=== PATIENT | male | born 1935 | race Caucasian/White ===

== ENCOUNTER 2018-08-23 10:22 | Emergency (ER) | payer MEDICARE, OTHER ==
[2018-08-23 10:23] VITALS: BMI 21.6
[2018-08-23 10:29] VITALS: BP 154/79; PULSE 91; RESP 18; TEMP 97.9; O2SAT 99
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
== END 2018-08-23 10:45 | disposition home or self-care (01) ==
LOC: H.ER 10:22
DX: Z77.098 Contact with and (suspected) exposure to other hazardous, chiefly nonmedicinal, chemicals (principal)

== ENCOUNTER 2018-12-02 07:58 | Emergency (ER) | payer MEDICARE, OTHER ==
[2018-12-02 07:58] VITALS: BMI 21.6
[2018-12-02 08:12] VITALS: RESP 18
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
[2018-12-02 09:20] LABS: BASO % 0.7 % (0.0-2.0); EOS # 0.1 K/uL (0.0-0.7); EOS % 2.8 % (0.0-4.0); HEMOGLOBIN 12.8 g/dL (12.0-18.0); LYMPH # 0.7 K/uL (1.0-4.3); LYMPH % 34.4 % (20.0-40.0); MEAN CELL VOLUME 87.3 fl (80.0-94.0); MEAN CORPUSCULAR HEMOGLOBIN 28.3 pg (27.0-31.0); MEAN CORPUSCULAR HGB CONC 32.4 g/dL (33.0-37.0); MONO # 0.3 K/uL (0.0-0.8); MONO % 15.4 % (0.0-10.0); NEUT % 46.7 % (50.0-75.0); NRBC % 0.1 % (0.0-0.0); RBC 4.52 Mil/uL (4.40-5.90); RED CELL DISTRIBUTION WIDTH 15.1 % (11.5-14.5); WHITE BLOOD COUNT 2.1 K/uL (4.8-10.8)
[2018-12-02 09:40] LABS: ALB/GLOB RATIO 1.5 (1.0-2.1); ALBUMIN 4.1 g/dL (3.5-5.0); ALT/SGPT 33 U/L (21-72); AST/SGOT 25 U/L (17-59); BLOOD UREA NITROGEN 18 mg/dl (9-20); CALCIUM 8.9 mg/dL (8.4-10.2); GFR NON-AFRICAN AMERICAN > 60; LIPASE 74 U/L (23-300); SQUAMOUS EPITHIAL < 1 /hpf (0-5); URINE BACTERIA RARE (<OCC); URINE BILIRUBIN NEGATIVE (NEGATIVE); URINE BLOOD NEGATIVE (NEGATIVE); URINE CLARITY CLEAR (Clear); URINE COLOR YELLOW (YELLOW); URINE GLUCOSE (UA) NEG (NEGATIVE); URINE LEUKOCYTE ESTERASE NEG Leu/uL (Negative); URINE PROTEIN NEGATIVE (NEGATIVE); URINE UROBILINOGEN 0.2-1.0 mg/dL (0.2-1.0)
[2018-12-02 09:52] LABS: PROTHROMBIN TIME 10.8 Seconds (9.8-13.1)
[2018-12-02 09:55] LABS: PARTIAL THROMBOPLASTIN TIME 30.1 Seconds (25.6-37.1)
[2018-12-02] MEDS ORDERED: Sodium Chloride 0.9% 50 ML IV ONE (09:59)
[2018-12-02] MEDS ORDERED: Iohexol 300 100 ML IJ ONE (09:59)
--- NOTE | 2018-12-02 10:33 | CT ---
Date of service: 12/02/2018 PROCEDURE: CT HEAD WITHOUT CONTRAST. HISTORY: Dizziness COMPARISON: None available. TECHNIQUE: Axial computed tomography images were obtained through the head/brain without intravenous contrast. Radiation dose: Total exam DLP = 799.2 mGy-cm. This CT exam was performed using one or more of the following dose reduction techniques: Automated exposure control, adjustment of the mA and/or kV according to patient size, and/or use of iterative reconstruction technique. FINDINGS: HEMORRHAGE: No intracranial hemorrhage. BRAIN: Diffuse atrophy with prominence of the ventricles and sulci noted. No mass effect or edema. 5 mm nonspecific calcification the region of the right basal ganglia. Scattered periventricular and subcortical white matter hypodensities, which are nonspecific, but often seen with chronic microvascular ischemic disease. Please note that MRI with diffusion imaging is more sensitive in the detection of acute ischemic event. VENTRICLES: No hydrocephalus. CALVARIUM: Unremarkable. PARANASAL SINUSES: Mucosal thickening of the ethmoid air cells. MASTOID AIR CELLS: Unremarkable as visualized. No inflammatory changes. OTHER FINDINGS: None. IMPRESSION: No acute intracranial pathology identified. Incidental findings as above.
--- NOTE | 2018-12-02 10:42 | CT ---
Date of service: 12/02/2018 PROCEDURE: CT Abdomen and Pelvis with contrast HISTORY: Abd pain, nausea COMPARISON: None available. TECHNIQUE: Contrast dose: 95 cc Omnipaque 300 IV Radiation dose: Total exam DLP = 392.85 mGy-cm. This CT exam was performed using one or more of the following dose reduction techniques: Automated exposure control, adjustment of the mA and/or kV according to patient size, and/or use of iterative reconstruction technique. FINDINGS: LOWER THORAX: Bibasilar atelectasis. No visible pleural effusion or pneumothorax. 9 mm nodule at the right lung base. Partially imaged cardiomegaly. Small hiatal hernia/distal esophageal wall thickening. LIVER: Hypoattenuation of the liver compatible with hepatic steatosis. GALLBLADDER AND BILE DUCTS: Unremarkable. PANCREAS: Unremarkable. SPLEEN: Unremarkable. ADRENALS: Unremarkable. KIDNEYS AND URETERS: The kidneys enhance symmetrically. No hydronephrosis or obstructing calculus identified. Bilateral renal cysts. VASCULATURE: No aortic aneurysm. Scattered atherosclerotic calcifications present. BOWEL: Stomach is nondistended. Lack of oral contrast limits evaluation for bowel pathology. Bowel loops appear within normal limits of caliber without evidence of obstruction. Mild wall thickening of the left colon likely exaggerated by under distension; correlate clinically for possibility of colitis. APPENDIX: The appendix appears within normal limits of caliber. No secondary signs of acute appendicitis. PERITONEUM: No significant free fluid. No definite free air. LYMPH NODES: No bulky adenopathy identified. BLADDER: Unremarkable. REPRODUCTIVE: Enlarged prostate gland measures approximately 4.7 x 4.6 cm. BONES: Degenerative changes. One retrolisthesis of L5 on S1. OTHER FINDINGS: Small bilateral fat containing inguinal hernias. IMPRESSION: 9 mm nodule at the right lung base. Outpatient chest CT suggested for further evaluation. If indicated, further assessment may be considered with biopsy, PET- CT, or follow-up CT at 3 months, and 9 months, and 24 months. Mild wall thickening of the left colon likely exaggerated by under distension; correlate clinically for possibility of colitis. Enlarged prostate gland. Recommend correlation with urinalysis. Hepatic steatosis. Bilateral renal cysts. Additional findings as above.
--- NOTE | 2018-12-02 12:31 | RAD ---
Date of service: 12/02/2018 HISTORY: Abdominal pain COMPARISON: No prior. FINDINGS: LUNGS: No active pulmonary disease. PLEURA: No significant pleural effusion identified, no pneumothorax apparent. CARDIOVASCULAR: Atherosclerotic calcifications identified primarily aortic arch. No radiographic findings to suggest acute or significant cardiovascular disease. OSSEOUS STRUCTURES: No significant abnormalities. VISUALIZED UPPER ABDOMEN: Normal. OTHER FINDINGS: None. IMPRESSION: No active disease.
--- NOTE | 2018-12-02 12:49 | CARD ---
APPROVED REPORT Date of service: 12/02/2018 EKG Measurement Heart [id number] SD [id number] <Conclusion> Normal sinus rhythm Left axis deviation Abnormal ECG
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
[2018-12-02 18:06] VITALS: BP 138/69; PULSE 71; TEMP 98
[2018-12-02 18:21] VITALS: O2SAT 97
== END 2018-12-02 18:29 | disposition home or self-care (01) ==
LOC: H.ER 07:58
DX: R20.0 Anesthesia of skin (principal); R91.1 Solitary pulmonary nodule; I10 Essential (primary) hypertension; N40.0 Benign prostatic hyperplasia without lower urinary tract symptoms
CPT/HCPCS: 70450; 71045; 74177; 80053; 81003; 82948; 83690; 84484; 85025; 85610; 85730; 93005; 99285; Q9967